=== PATIENT | male | born 1995 ===

== ENCOUNTER 2022-02-21 09:55 | Emergency (ER) | payer SELFPAY ==
[2022-02-21 10:03] VITALS: BP 144/82
[2022-02-21] MEDS ORDERED: SODIUM CHLORIDE 0.9% IRR 1,000 ML BOTTLE IR ONE (17:22)
[2022-02-21] MEDS ORDERED: TETANUS,DIPH,PERTUSS(ACELL) VACCINE 0.5 ML SYRINGE IM ONE (17:24)
[2022-02-21] MEDS ORDERED: LIDOCAINE (1%) 10 MG/1 ML VIAL 20 ML MDV INFILTRATI ONE (18:30)
--- NOTE | 2022-02-21 18:47 | Emergency Department Report ---
ED Laceration HPI - HPI Chief Complaint: Wound/Laceration Stated Complaint: ARM INURY Time Seen by Provider: 02/21/22 17:07 Occurred When: Today Location: Upper Extremity Severity: mild Tetanus Status: Not up to Date Laceration Symptoms: No Foreign Body Sensation, No Numbness, No Weakness, No Pain Other History: 26-year-old male with no significant past medical history reports arm laceration to right forearm due to cut on glass. No other symptoms reported sensation is noted to be intact and right hand and right arm. ED Review of Systems ROS: Stated complaint: ARM INURY Other details as noted in HPI Comment: All other systems reviewed and negative Skin: as per HPI, other (Laceration right forearm) ED Past Medical Hx - Past Medical History Previous Medical History?: No - Surgical History Past Surgical History?: No - Social History Smoking Status: Never Smoker Laceration Physical Exam - Exam General: Vital signs noted. No distress. Alert and acting appropriately. Laceration Location: Upper Extremity (Right forearm) Laceration Exam: Yes Normal Distal CMS, No Foreign Body, No Exposed Tendon, Vessel, or Nerve, No Tendon Injury ED Course Vital Signs 02/21/22 02/21/22 09:59 10:03 Temperature 98.6 F Pulse Rate 95 H Respiratory 18 Rate Blood Pressure 144/82 O2 Sat by Pulse 98 Oximetry - Laceration /Wound Repair Right Lower Anterior Arm Wound Location: upper extremity Wound Length (cm): 2 Wound's Depth, Shape: superficial Wound Explored: clean Irrigated w/ Saline (ccs): 500 Betadine Prep?: Yes Anesthesia: 1% Lidocaine Volume Anesthetic (ccs): 4 Wound Debrided: moderate Wound Repaired With: sutures Suture Size/Type: 3:0 Number of Sutures: 4 (Running sutures) Layer Closure?: No Sterile Dressing Applied?: Yes ED Medical Decision Making - Medical Decision Making 26-year-old male cut his right forearm on glass accidentally. No foreign body glass noted as glass was not crushed during incident. Patient has full range of motion in right arm no concerns for tendon injury. Neurovascular intact. Right repair was completed with running sutures. Lidocaine without epi used for anesthetizing. Tdap shot given to patient. Dressing was over sutures. Patient agrees with plan of care and verbalized understanding. Patient informed to follow-up in 7 to 10 days to have sutures removed. No further work-up is needed at this time. Critical care attestation.: If time is entered above; I have spent that time in minutes in the direct care of this critically ill patient, excluding procedure time. ED Disposition Clinical Impression: Laceration of forearm, right Qualifiers: Encounter type: initial encounter Qualified Code(s): S51.811A - Laceration without foreign body of right forearm, initial encounter Disposition: HOME / SELF CARE / HOMELESS Is pt being admited?: No Condition: Stable Instructions: Laceration Care, Adult, Sutured Wound Care Additional Instructions: Please report back to the ER in 7 to 10 days to have sutures removed. Or report to local urgent care or primary care provider to have sutures removed in 7 to 10 days. Please watch for signs of infection including fever, swelling, discharge, foul odor. Please keep sutures clean and dry. Time of Disposition: 18:31 Print Language: MONGOLIAN
== END 2022-02-21 19:36 | disposition home or self-care (01) ==
LOC: ED 09:55
DX: S51.811A Laceration without foreign body of right forearm, initial encounter (principal); W25.XXXA Contact with sharp glass, initial encounter; Y93.89 Activity, other specified; Y92.89 Other specified places as the place of occurrence of the external cause; Y99.8 Other external cause status
CPT/HCPCS: 90715; 99282